=== PATIENT | male | born 1975 | race Caucasian/White ===

== ENCOUNTER → 2024-06-28 | Outpatient (CLI) | payer OTHER, SELFPAY ==
--- NOTE | 2024-06-28 13:46 | DI.ECHO.S_ITS ---
[facility] : : [address] : : [place] : : [id number] : : Phone: [phone] Echocardiogram Report + + :Name: ZOHREH CALI Study Date: 06/28/2024 Height: 75 in : :[facility] ReadingLocation: Weight: 240 lb : : Gender: Male BSA: 2.4 m2 : :: 1975 Age: 49 yrs BP: 142/97 mmHg: :Reason For Study: DYPSNEA ON EXERTION : :Ordering Physician: JIMY CHEUNG Performed By: Case Rosario : :Referring: JIMY CHEUNG : + + Interpretation Summary 1. The left ventricular contractility is normal. Estimate ejection fraction is greater than 55% with no segmental wall motion abnormalities. No LVH. Normal diastolic function. 2. The right ventricular contractility is normal. 3. All cardiac chambers are of normal size. 4. No significant valvular abnormalities. 5. No obvious intracardiac shunts. 6. No obvious intracardiac masses nor thrombi. 7. No hemodynamically significant pericardial effusion. Conclusion: Normal biventricular function with no significant valvular nor structural abnormalities. Procedure: A two-dimensional transthoracic echocardiogram with color flow and Doppler was performed. The study quality was technically good. There is no prior echocardiogram noted for this patient. The patient was in normal sinus rhythm during the exam. Left Ventricle: The left ventricle is normal in size. There is normal left ventricular wall thickness. There is no ventricular septal defect visualized. The ejection fraction is estimated to be 55-60%. There are no focal wall motion abnormalities. Right Ventricle: The right ventricle is normal in size and function. Atria: The left atrial size is normal. Right atrial size is normal. There is no Doppler evidence for an interatrial shunt. Mitral Valve: The mitral valve is normal in structure and function. There is no mitral regurgitation noted. Aortic Valve: The aortic valve is trileaflet. The aortic valve opens well. No aortic regurgitation is present. Tricuspid Valve: The tricuspid valve is normal in structure and function. No tricuspid regurgitation. Pulmonic Valve: The pulmonic valve is normal in structure and function. There is trace pulmonic regurgitation. Great Vessels: The aortic root is normal size. The dimensions of the ascending aorta are normal. The pulmonary artery is normal size. The inferior vena cava was not well visualized. Pericardium/ Pleura There is no pericardial effusion. There is no pleural effusion. MMode/2D Measurements & Calculations LVIDd: 5.6 cm LVOT diam: 2.8 cm LVIDs: 3.6 cm Ao root diam: 3.7 cm FS: 35.4 % asc Aorta Diam: 3.5 cm EPSS: 0.67 cm IVSd: 1.0 cm LVPWd: 0.89 cm LV thomas. diameter/BSA (cm/m^2): 2.4 LV sys. diameter/BSA (cm/m^2): 1.5 LA A2 area: 23.0 cm2 RA long axis: 4.7 cm LA A4 area: 17.8 cm2 RA area: 15.6 cm2 LA length (vol): 5.1 cm RA vol: 43.7 ml LA vol: 68.3 ml RA : 18.4 ml/m2 LA vol index: 28.8 ml/m2 IVC diam: 1.8 cm RVD1 (basal): 4.5 cm RVD2 (mid): 3.9 cm TAPSE: 2.8 cm Doppler Measurements & Calculations Ao V2 max: 129.9 cm/sec LVOT Max Zenon: 98.0 cm/sec Ao V2 mean: 96.8 cm/sec LV V1 max P.8 mmHg Ao max P.7 mmHg LV V1 VTI: 22.5 cm Ao mean P.0 mmHg SHIRA(I,D): 4.5 cm2 Ao V2 VTI: 30.6 cm SHIRA(V,D): 4.7 cm2 sev ratio: 0.73 SHIRA indexed to BSA (cm^2/m^2): 1.9 MV E max zenon: 89.5 cm/sec PA V2 max: 82.4 cm/sec MV A max zenon: 66.9 cm/sec PA V2 mean: 62.1 cm/sec MV E/A: 1.3 PA mean P.7 mmHg Med Peak E' Zenon: 9.1 cm/sec PA pr(Accel): 7.1 mmHg E/E' med: 9.8 Lat Peak E' Zenon: 11.8 cm/sec E/E' lat: 7.6 E/e' average: 8.7 MV dec time: 0.18 sec SV(LVOT): 138.6 ml Reading Physician:
--- NOTE | 2024-06-28 20:11 | DI.NM.S_ITS ---
DATE OF SERVICE: 06/28/2024 EXERCISE STRESS TEST INDICATION: Shortness of breath with right bundle-branch block. CARDIAC STRESS: The patient underwent exercise stress test under the supervision of an attending staff. The patient walked on Bentley protocol for 13 minutes and 34 seconds, achieved maximum heart rate of 174 which was 101% of target heart rate. 14.8 METS of workload. MAY -20%. Baseline rhythm was sinus with right bundle branch block. During stress, no convincing ischemic changes. Rare PVCs. Resting blood pressure 120/88 and peak blood pressure 180/90. No chest pain. Had some shortness of breath. CONCLUSION: Exercise stress test is negative for inducible ischemia. Good exercise tolerance. Normal hemodynamic response. No significant arrhythmias. No chest pain. Normal recovery. Overall, low-risk exercise stress test. Eric Bush - BECKI/blair/RAFY doc#: [id number]/job#: [id number] dd: 06/28/2024 17:10:00 dt: 06/28/2024 20:04:00 DICTATING /COPIES TO: Erwin Falcon MD COPIES MNE: DUNCAN;
== END ==
PROVIDERS: Referring Provider Internal Medicine; Visit Provider Internal Medicine
DX: R06.09 Other forms of dyspnea (principal); R00.2 Palpitations; I45.10 Unspecified right bundle-branch block
CPT/HCPCS: 93017; 93306